=== PATIENT | female | born 1965 | race Caucasian/White ===

== ENCOUNTER 2018-10-20 15:00 | Emergency (ER) | payer SELFPAY ==
[~2018-10-20] VITALS: Ht 157.5 cm; Wt 53.6 kg
[2018-10-20 15:04] VITALS: Ht 157.5 cm; Wt 53.6 kg
[2018-10-20 15:33] LABS: BASOPHILS 0.3 % (0-2); EOSINOPHILS 0.5 % (0-7); HEMATOCRIT 38.3 % (36.0-48.0); HEMOGLOBIN 12.7 g/dL (12-16); IMMATURE GRANULOCYTES 0.4 % (0-5); LYMPHOCYTES 12.1 % (15-50); MCH 31.1 pg (26.0-34.0); MCHC 33.2 g/dL (31.0-37.0); MCV 93.6 fL (80.0-100.0); MEAN PLATELET VOLUME 10.7 fL (7.4-10.4); MONOCYTES 3.9 % (2-11); NEUTROPHILS 82.8 % (40-80); PLATELET COUNT 324 10x3/uL (130-400); RBC 4.09 10x6/uL (4.00-5.40); RDW 15.7 % (11.5-14.5); WBC 13.9 10x3/uL (4.8-10.8)
[2018-10-20 15:49] LABS: ALBUMIN 3.3 g/dL (3.4-5.0); BILIRUBIN - TOTAL 0.37 mg/dL (0.2-1.3); CALCIUM 8.8 mg/dL (8.5-10.1); CARBON DIOXIDE 27.6 mmol/L (21.0-32.0); CREATININE - SERUM 1.4 mg/dL (0.6-1.3); POTASSIUM - SERUM 3.6 mmol/L (3.5-5.1); PROTEIN - SERUM 7.8 g/dL (6.4-8.2)
[2018-10-20 15:55] LABS: APPEARANCE SL CLDY (CLEAR); BILIRUBIN NEGATIVE (NEGATIVE); COLOR YELLOW (YELLOW); GLUCOSE NEGATIVE (NEGATIVE); KETONE NEGATIVE (NEGATIVE); NITRITE POSITIVE (NEGATIVE); PROTEIN TRACE mg/dL (NEGATIVE); SPECIFIC GRAVITY 1.015 (1.005-1.020); UROBILINOGEN NORMAL (NORMAL)
[2018-10-20 15:57] LABS: RED CELLS - URINE 0-5 /hpf (0-5); WHITE CELLS - URINE 0-5 /hpf (0-5)
[2018-10-20 15:58] LABS: BACTERIA MANY /hpf (NONE SEEN)
[2018-10-20 16:07] LABS: APTT 32.6 SECONDS (22.8-39.4); INR 0.91 (0.85-1.17); PROTIME 11.8 SECONDS (11.6-15.0)
[2018-10-20] MEDS ORDERED: CIPRO500 MG PO (18:22)
[2018-10-20 19:00] VITALS: BP 146/90
== END 2018-10-20 18:50 | disposition home or self-care (01) ==
LOC: D.ER 15:00
PROVIDERS: Family Medicine
DX: K59.00 Constipation, unspecified (principal); N88.8 Other specified noninflammatory disorders of cervix uteri; N39.0 Urinary tract infection, site not specified

== ENCOUNTER → 2018-10-25 11:39 | Outpatient (CLI) | payer SELFPAY ==
[2018-10-20 15:04] VITALS: BMI 21.6
[~2018-10-25 11:39] MED LIST: CIPRO500 MG PO
== END | disposition home or self-care (01) ==
LOC: D.LABREF 11:39
PROVIDERS: ATTEND Obstetrics & Gynecology
DX: N93.9 Abnormal uterine and vaginal bleeding, unspecified (principal)